=== PATIENT | female | born 1955 | race Caucasian/White ===

== ENCOUNTER 2018-05-02 17:32 | Emergency (ER) | payer MEDICARE, MEDICAID ==
--- NOTE | 2018-05-02 18:05 | Emergency Department Record ---
History of Present Illness - General Chief Complaint: Palpitations Stated Complaint: RACING HEART RATE,DIZZINESS Time Seen by Provider: 05/02/18 18:00 Source: Patient Mode of Arrival: Ambulatory Limitations: No limitations - History of Present Illness Initial Comments: 62 yo female presents to ED for evaluation of palpitations over the past 2 days. Patient reports a history of intermittent SVT for many years. Patient denies chest discomfort, shortness of breath, or pain with deep inspiration. Patient does report improvement in her symptoms with laying down at home. Patient denies history of heart disease or DVT/PE. MD Complaint: Palpitations Onset/Timin -: Days(s) Associated Symptoms: Chest pain - Related Data Previous Rx's Medication Instructions Recorded Hydrocodone/Acetaminophen [[place] 1 tab PO Q6H PRN #30 tab 03/02/16 5mg/325mg] Prednisone [Prednisone 10Mg] 10 mg PO ASDIR #30 tab 03/02/16 Allergies Allergy/AdvReac Type Severity Reaction Status Date / Time NSAIDS (Non-Steroidal Allergy Unknown HYPERSENSIT Verified 03/02/16 17:04 Anti-Inflamma IVITY [NSAIDS (NON-STEROIDAL ANTI-INFLAMMA] Travel Screening - Travel/Exposure Within Last 30 Days Have you traveled within the last 30 days?: No Review of Systems Constitutional: Denies: Chills, Fever, Malaise, Night sweats Eyes: Denies: Eye discharge, Eye pain ENT: Denies: Congestion, Ear pain, Epistaxis Respiratory: Denies: Cough, Dyspnea Cardiovascular: Reports: Palpitations. Denies: Chest pain, Dyspnea on exertion Endocrine: Denies: Fatigue, Heat or cold intolerance Gastrointestinal: Denies: Abdominal pain, Nausea, Vomiting Genitourinary: Denies: Incontinence, Retention Musculoskeletal: Denies: Arthralgia, Back pain Skin: Denies: Bruising, Change in color Neurological: Denies: Abnormal gait, Confusion, Headache, Numbness, Tingling, Tremors Psychiatric: Denies: Anxiety Hematological/Lymphatic: Denies: Anemia, Blood Clots Past Medical History - SOCIAL HISTORY Smoking Status: Current every day smoker Alcohol Use: None Drug Use: None - RESPIRATORY Hx Respiratory Disorders: No - CARDIOVASCULAR Hx Cardio Disorders: No - NEURO Hx Neuro Disorders: No - GI Hx GI Disorders: No - Hx Genitourinary Disorders: No - ENDOCRINE Hx Diabetes: Yes Hx Thyroid Disease: No - MUSCULOSKELETAL Hx Musculoskeletal Disorders: Yes Hx Arthritis: Yes - PSYCH Hx Psych Problems: Yes Hx Anxiety: Yes Hx Depression: Yes - HEMATOLOGY/ONCOLOGY Hx Hematology/Oncology Disorders: No Hx Cancer: No Family Medical History Any Significant Family History?: Yes Hx Heart Disease: Father, Mother Physical Exam - General General Appearance: Alert, Oriented x3, Cooperative, No acute distress Limitations: No limitations - Head Head exam: Atraumatic, Normocephalic, Normal inspection Head exam detail: negative: Abrasion, Contusion, Ross's sign, General tenderness, Hematoma, Laceration - Eye Eye exam: Normal appearance. negative: Conjunctival injection, Periorbital swelling, Periorbital tenderness, Scleral icterus - ENT Ear exam: negative: Auricular hematoma, Auricular trauma Nasal Exam: negative: Active bleeding, Discharge, Dried blood, Foreign body Mouth exam: negative: Drooling, Laceration, Muffled voice, Tongue elevation - Neck Neck exam: Normal inspection. negative: Meningismus, Tenderness - Respiratory Respiratory exam: Normal lung sounds bilaterally. negative: Respiratory distress, Rhonchi, Stridor, Wheezes - Cardiovascular Cardiovascular Exam: Regular rate, Normal rhythm, Normal heart sounds - GI/Abdominal GI/Abdominal exam: Soft. negative: Rebound, Rigid, Tenderness - Rectal Rectal exam: Deferred - exam: Deferred - Extremities Extremities exam: Normal inspection. negative: Pedal edema, Tenderness - Back Back exam: Denies: CVA tenderness (R), CVA tenderness (L) - Neurological Neurological exam: Alert, Normal gait, Oriented X3 - Psychiatric Psychiatric exam: Anxious, Normal mood - Skin Skin exam: Normal color. negative: Abrasion Type of lesion: negative: abrasion Course Vital Signs 05/02/18 17:36 Temperature 97.9 F Pulse Rate 92 H Respiratory 26 H Rate Blood Pressure 126/79 Pulse Ox 94 L - Reevaluation(s) Reevaluation #1: 05/02/18 18:04 EKG: NSR 77 Normal axis, normal intervals No acute ST-T wave changes Reevaluation #2: 05/02/18 18:33 Laboratory studies were reviewed and are grossly unremarkable for an acute process. Reevaluation #3: 05/02/18 19:07 Patient was updated on all results, recommend observation admission for further cardiac evaluation. Following discussion with the patient regarding admission for further cardiac evaluation, patient reports that they want to leave AMA at this time. Risks of , permanent impairment, or worsening of their current condition were discussed as well as the benefit of further observation and admission for further evaluation of their chest pain symptoms. Patient verbalizes understanding of all risks and benefits, desires to leave AMA despite these risks. Based on my examination, the patient is alert, oriented, and answers all questions appropriately. Patient appears to have the capacity to make rational decisions based on my examination. Patients family () was present for the duration of our discussion as well. Patient was encouraged to return to the ED immediately if they change their mind about treatment and want to be re-evaluated. Will refer the patient for outpatient cardiac stress testing as well. Patient appears stable for discharge AMA at this time. Medical Decision Making - Lab Data Result diagrams: 05/02/18 17:40 05/02/18 17:40 Disposition Disposition: Discharge Clinical Impression: Palpitations Chest pain Qualifiers: Chest pain type: unspecified Qualified Code(s): R07.9 - Chest pain, unspecified Disposition: Against Medical Advice Condition: (2) Stable Instructions: Heart Palpitations (ED) Additional Instructions: Return to ED if your symptoms worsen or if you have any concerns. Follow-up with your family doctor in 3-5 days as directed. Follow-up in the [facility] for outpatient stress testing in 1-3 days as directed. Referrals: TISH NEELY M.D. [MEDICAL DOCTOR] - [facility] [Provider Group] Forms: Patient Portal Access Time of Disposition: 19:10 Quality - Quality Measures Quality Measures: N/A - Blood Pressure Screening Does Patient Have Any of the Following: No Blood Pressure Classification: Pre-Hypertensive BP Reading Systolic Measurement: 126 Diastolic Measurement: 79 Screening for High Blood Pressure: < Pre-Hypertensive BP, F/U Documented > [ G8950] Pre-Hypertensive Follow-up Interventions: Referral to alternative/primary care provider.
[2018-05-02 18:10] LABS: BASO % 0.6 % (0-6); EOS % 5.1 % (0-6); HEMATOCRIT 36.5 % (35.0-47.0); HEMOGLOBIN 11.6 gm/dl (11.6-16.0); LYMPH % 29.5 % (16-45); MEAN CELL VOLUME 98.4 fl (81-97); MEAN CORPUSCULAR HEMOGLOBIN 31.2 pg (27-33); MEAN CORPUSCULAR HGB CONC 31.8 g/dl (32-36); MONO % 7.8 % (0-9); PLATELET COUNT 358 K/uL (130-400); RED BLOOD COUNT 3.71 M/uL (3.80-5.40); RED CELL DISTRIBUTION WIDTH 13.2 % (11.5-14.5); WHITE BLOOD COUNT W/O DIFF 9.6 K/uL (4.2-12.2)
[2018-05-02] MEDS ORDERED: 0.9 % SODIUM CHLORIDE 1000ML 1,000 ML IV SCH (18:15)
[2018-05-02 18:23] LABS: BLOOD UREA NITROGEN 13 mg/dL (8-23); CREATININE 0.9 mg/dL (0.5-0.9); EST GLOMERULAR FILTRATION RATE > 60 mL/min
[2018-05-02 18:24] LABS: TOTAL PROTEIN 7.3 g/dL (6.6-8.7)
[2018-05-02 18:26] LABS: GLUCOSE,RANDOM 181 mg/dL (74-109)
[2018-05-02 18:28] LABS: ALT/SGPT 18 U/L (<33); AST/SGOT 14 U/L (10.0-35.0)
[2018-05-02 18:29] LABS: ALB/GLOB RATIO 1.4 (1.1-1.8); ALBUMIN 4.3 g/dL (4.0-5.0); ALKALINE PHOSPHATASE 98 U/L (35-104)
[2018-05-02] MEDS ORDERED: NITROGLYCERIN 0.4MG SL TABLET #25 BTL SL PRN (18:32)
--- NOTE | 2018-05-04 11:52 | RADIOLOGY REPORT ---
DATE: 05/02/2018 at 6:51 p.m. EXAM: TWO-VIEW, CHEST. HISTORY: PALPITATIONS. TECHNIQUE: PA and lateral views. COMPARISON: A two-view, chest, dated 02/16/2013. FINDINGS: Heart size is normal. No definite acute infiltrate seen. No pleural effusion or pneumothorax evident. Prominent spurring in the mid to lower thoracic spine with a thoracic curve convex to the right. IMPRESSION: 1. PROMINENT SPURRING IN THE THORACIC SPINE WITH A THORACIC CURVE TO THE RIGHT. 2. NO DEFINITE ACUTE INFILTRATE IDENTIFIED. JOB NUMBER: [id number] [facility]
== END 2018-05-02 19:34 | disposition left against medical advice (07) ==
LOC: ER 17:32
DX: R00.2 Palpitations (principal); R07.9 Chest pain, unspecified; R42 Dizziness and giddiness; F17.210 Nicotine dependence, cigarettes, uncomplicated; E11.9 Type 2 diabetes mellitus without complications; Z79.84 Long term (current) use of oral hypoglycemic drugs
CPT/HCPCS: 71046; 80053; 84484; 85025; 85379; 93005; 93010; 99284

== ENCOUNTER 2018-10-21 23:48 | Observation (INO) | payer MEDICARE, MEDICAID ==
--- NOTE | 2018-10-21 23:52 | Emergency Department Record ---
History of Present Illness - General Chief Complaint: Cough Stated Complaint: COUGH Time Seen by Provider: 10/21/18 23:50 Source: Patient, Family Mode of Arrival: Ambulatory Limitations: No limitations - History of Present Illness Initial Comments: 63 yo female presents with about 5 days of progressive cough and shortness of breath. She is a smoker. The cough so far has been non productive. She denies and chest pain. No history of diagnosed lung disease. She had a few loose stools today. No vomiting. The patient was 88% on room air on arrival. No known coronary disease. No recent edema of the legs. She reports that she did have some similar cough over the course of the last month but it seemed to have gotten better only to return the last 5 days. She had pneumonia about 10 years ago requiring admission for about a week. PCP is in [place] She did state that she occasionally uses her husbands nebulizer at home if short of breath. MD Complaint: Cough, Nasal congestion, Rhinorrhea -: Days(s) (5) Severity: Moderate Quality: Other Consistency: Constant Improves With: Nothing Worsens With: Activity Context: Other Associated Symptoms: Cough Treatments Prior to Arrival: None - Related Data Home Medications Medication Instructions Recorded Confirmed Last Taken Acetaminophen [Tylenol Extra 500 mg PO BID 10/22/18 10/22/18 Unknown Strength] Cetirizine HCl 10 mg PO DAILY 10/22/18 10/22/18 Unknown Clonazepam 1 mg PO TID 10/22/18 10/22/18 Unknown Cyanocobalamin (Vitamin B-12) 1,000 mcg PO DAILY 10/22/18 10/22/18 Unknown [Vitamin B12] Gabapentin [Neurontin] 600 mg PO TID 10/22/18 10/22/18 Unknown Lisinopril 2.5 mg PO DAILY 10/22/18 10/22/18 Unknown Melatonin 5 mg PO QHS 10/22/18 10/22/18 Unknown Sennosides/Docusate Sodium [Senna 1 each PO QHS 10/22/18 10/22/18 Unknown Plus] Venlafaxine HCl [Effexor Xr] 37.5 mg PO DAILY 10/22/18 10/22/18 Unknown Venlafaxine HCl [Effexor Xr] 150 mg PO DAILY 10/22/18 10/22/18 Unknown Allergies Allergy/AdvReac Type Severity Reaction Status Date / Time NSAIDS (Non-Steroidal Allergy Unknown HYPERSENSIT Verified 03/02/16 17:04 Anti-Inflamma IVITY [NSAIDS (NON-STEROIDAL ANTI-INFLAMMA] Review of Systems Constitutional: Reports: Malaise. Denies: Chills, Fever Eyes: Denies: Eye discharge ENT: Reports: Congestion. Denies: Ear pain, Epistaxis, Throat pain Respiratory: Reports: Cough, Dyspnea, Wheezes. Denies: Hemoptysis Cardiovascular: Reports: Dyspnea on exertion. Denies: Chest pain, Edema, Palpitations, Syncope Endocrine: Reports: Fatigue. Denies: Polydipsia, Polyuria Gastrointestinal: Denies: Abdominal pain, Diarrhea, Nausea, Vomiting Genitourinary: Denies: Dysuria, Urgency Musculoskeletal: Reports: Arthralgia (chronic knee pain). Denies: Back pain, Myalgia Skin: Denies: Bruising, Change in color, Rash Neurological: Denies: Confusion Psychiatric: Denies: Anxiety Hematological/Lymphatic: Denies: Easy bleeding, Easy bruising Past Medical History - SOCIAL HISTORY Smoking Status: Current every day smoker Drug Use: None - RESPIRATORY Hx Respiratory Disorders: No - CARDIOVASCULAR Hx Cardio Disorders: No - NEURO Hx Neuro Disorders: No - GI Hx GI Disorders: No - Hx Genitourinary Disorders: No - ENDOCRINE Hx Diabetes: Yes Hx Thyroid Disease: No - MUSCULOSKELETAL Hx Musculoskeletal Disorders: Yes Hx Arthritis: Yes - PSYCH Hx Psych Problems: Yes Hx Anxiety: Yes Hx Depression: Yes - HEMATOLOGY/ONCOLOGY Hx Hematology/Oncology Disorders: No Hx Cancer: No Family Medical History Hx Heart Disease: Father, Mother Physical Exam - General General Appearance: Alert, Oriented x3, Cooperative, No acute distress Limitations: No limitations - Head Head exam: Atraumatic, Normal inspection - Eye Eye exam: Normal appearance. negative: Conjunctival injection - ENT ENT exam: Normal exam, Mucous membranes moist Ear exam: Normal external inspection Nasal Exam: Normal inspection Mouth exam: Normal external inspection - Neck Neck exam: Normal inspection - Respiratory Respiratory exam: Accessory muscle use, Decreased breath sounds, Prolonged expiratory, Rhonchi, Wheezes. negative: Normal lung sounds bilaterally, Respiratory distress - Cardiovascular Cardiovascular Exam: Regular rate, Normal rhythm, Normal heart sounds - GI/Abdominal GI/Abdominal exam: Soft. negative: Distended, Guarding, Tenderness - Rectal Rectal exam: Deferred - exam: Deferred - Extremities Extremities exam: Normal inspection. negative: Calf tenderness, Pedal edema, Tenderness - Back Back exam: Denies: CVA tenderness (R), CVA tenderness (L) - Neurological Neurological exam: Alert, Oriented X3 - Psychiatric Psychiatric exam: Normal affect, Normal mood. negative: Agitated, Anxious - Skin Skin exam: Dry, Intact, Normal color, Warm Course - Reevaluation(s) Reevaluation #1: EKG #1: Rate: 82 Rhythm: sinus Loving: normal Intervals: normal ST segments: normal Prior: 05/02/2018 no changes 10/22/18 00:03 10/22/18 00:11 On 2LNC oxygen levels increase to low 90's 10/22/18 00:16 The CBC was reviewed. Mild anemia. Medical Decision Making - Lab Data Result diagrams: 10/22/18 00:05 10/22/18 00:05 Disposition Disposition: Admit Clinical Impression: Cough, Hypoxia, Smoker, Bronchitis, COPD (chronic obstructive pulmonary disease) Disposition: Still a Patient at [facility] Decision to Admit: Admit from ER Decision to Admit Date: 10/22/18 Decision to Admit Time: 00:43 Condition: (2) Stable Forms: Patient Portal Access Time of Disposition: 00:43 Quality - Quality Measures Quality Measures: N/A - Blood Pressure Screening Does Patient Have Any of the Following: No Blood Pressure Classification: Hypertensive Reading Systolic Measurement: 143 Diastolic Measurement: 75 Screening for High Blood Pressure: < Pre-Hypertensive BP, F/U Documented > [G8950] Pre-Hypertensive Follow-up Interventions: Referral to alternative/primary care provider.
[2018-10-21] MEDS ORDERED: METHYLPREDNISOLONE PF 125MG/VIAL IM ONE (23:54)
[2018-10-21] MEDS ORDERED: AZITHROMYCIN 500 MG TABLET PO ONE (23:54)
[2018-10-21] MEDS ORDERED: IPRATROPIUM/ALBUTEROL (0.5MG/3MG) NEB INH ONE (23:54)
[2018-10-22 00:13] LABS: ABSOLUTE NEUTROPHIL COUNT 5.48; BASO % 0.6 % (0-6); GRAN % 57.3 % (47-80); HEMATOCRIT 37.4 % (35.0-47.0); HEMOGLOBIN 11.6 gm/dl (11.6-16.0); LYMPH % 26.9 % (16-45); MEAN CELL VOLUME 101.9 fl (81-97); MEAN CORPUSCULAR HEMOGLOBIN 31.6 pg (27-33); MEAN PLATELET VOLUME 9.7 fl (7.4-10.4); MONO % 9.2 % (0-9); PLATELET COUNT 319 K/uL (130-400); RED BLOOD COUNT 3.67 M/uL (3.80-5.40); RED CELL DISTRIBUTION WIDTH 13.7 % (11.5-14.5); WHITE BLOOD COUNT W/O DIFF 9.6 K/uL (4.2-12.2)
[2018-10-22 00:20] LABS: BLOOD UREA NITROGEN 10 mg/dL (8-23)
[2018-10-22 00:21] LABS: CREATININE 0.9 mg/dL (0.5-0.9); EST GLOMERULAR FILTRATION RATE > 60 mL/min
[2018-10-22] MEDS ORDERED: METHYLPREDNISOLONE PF 125MG/VIAL IVP ONE (00:22)
[2018-10-22 00:23] LABS: GLUCOSE,RANDOM 336 mg/dL (74-109)
[2018-10-22] MEDS ORDERED: HUMULIN R 100 UNIT/ML VIAL SQ ONE (00:35)
[2018-10-22] MEDS ORDERED: ACETAMINOPHEN 500 MG TABLET PO PRN (01:14)
[2018-10-22] MEDS ORDERED: ALBUTEROL SULFATE (0.083%) 2.5 MG/3 ML NEB INH PRN (01:14)
[2018-10-22] MEDS: CEFTRIAXONE SODIUM 1 GM in 0.9 % SODIUM CHLORIDE 100ML 100 ML IVPB SCH ×2 (02:01→02:10)
[2018-10-22] MEDS: IPRATROPIUM/ALBUTEROL (0.5MG/3MG) NEB INH SCH ×5 (05:37→21:47)
[2018-10-22] MEDS: BENZONATATE 100 MG CAPSULE PO PRN ×2 (06:16→19:53)
[2018-10-22] MEDS: HUMULIN R 100 UNIT/ML VIAL SQ SCH ×3 (08:11→17:55)
[2018-10-22] MEDS: METFORMIN 500 MG TABLET PO SCH ×2 (08:20→17:56)
[2018-10-22] MEDS ORDERED: LORATADINE 10 MG TABLET PO SCH ×3 (08:30→22:00)
[2018-10-22] MEDS ORDERED: CYANOCOBALAMIN (VITAMIN B-12) 100 MCG TABLET PO SCH (08:30)
[2018-10-22] MEDS ORDERED: DILTIAZEM 180MG CR CAPSULE PO SCH ×3 (08:30→22:00)
[2018-10-22] MEDS ORDERED: LISINOPRIL 5 MG TABLET PO SCH (08:30)
[2018-10-22] MEDS ORDERED: ASPIRIN 81 MG TABEC PO SCH ×3 (08:30→22:00)
[2018-10-22] MEDS ORDERED: GABAPENTIN 300 MG CAPSULE PO SCH (08:30)
[2018-10-22] MEDS: VENLAFAXINE ER 37.5 MG CAPSULE PO SCH (08:38)
[2018-10-22] MEDS: VENLAFAXINE ER 75 MG CAPSULE PO SCH (08:39)
[2018-10-22] MEDS: CLONAZEPAM 1MG TABLET PO SCH ×3 (08:40→21:40)
--- NOTE | 2018-10-22 08:48 | RADIOLOGY REPORT ---
EXAM: CHEST, TWO VIEWS HISTORY: COUGH WITH SHORTNESS OF BREATH FOR THE PAST SEVERAL WEEKS. WORSENING SYMPTOMS. TECHNIQUE: PA and lateral upright views of the chest were obtained. Comparison: 05/02/18. FINDINGS: The heart, mediastinum, and pulmonary vasculature are normal. There is stable linear scarring at the left lung base. There are no acute infiltrates or effusions. There is no pneumothorax. Degenerative changes are present within the spine. IMPRESSION: STABLE CHEST WITH NO ACUTE PROCESS IDENTIFIED. JOB NUMBER: [id number] [facility]
[2018-10-22] MEDS ORDERED: METHYLPREDNISOLONE PF 125MG/VIAL IVP SCH (10:00)
[2018-10-22] MEDS: ENOXAPARIN 40 MG/0.4 ML SYR SC SCH (11:50)
[2018-10-22] MEDS: GABAPENTIN 300 MG CAPSULE PO SCH ×3 (14:11→21:39)
[2018-10-22] MEDS: LISINOPRIL 5 MG TABLET PO SCH (14:12)
[2018-10-22] MEDS: CYANOCOBALAMIN (VITAMIN B-12) 100 MCG TABLET PO SCH (14:12)
[2018-10-22] MEDS ORDERED: RANITIDINE HCL 150 MG TABLET PO PRN (14:48)
--- NOTE | 2018-10-22 14:51 | History & Physical ---
History of Present Illness - Date of Service Date of Service for History & Physical: 10/22/18 - History of Present Illness Admitting Diagnosis: COPD, Hypoxia, Bronchitis History of Present Illness: 63 yo female presents with about 5 days of progressive cough and shortness of breath. She is a smoker. The cough so far has been non productive. She denies and chest pain. No history of diagnosed lung disease. She had a few loose stools today. No vomiting. The patient was 88% on room air on arrival. No known coronary disease. No recent edema of the legs. She reports that she did have some similar cough over the course of the last month but it seemed to have gotten better only to return the last 5 days. She had pneumonia about 10 years ago requiring admission for about a week. PCP is in [place] She did state that she occasionally uses her husbands nebulizer at home if short of breath. PMHx includes: every day smoker, DM, arthritis, anxiety, depression. In the ED, oxygen 88% on arrival. HR 94. BP stable and pt afebrile. Oxygen improved to low 90s on 2L O2. EKG SNR, normal intervals, no ST-T changes, no changes from previous of 05/02/18. CBC demonstrated mild anemia. Pt. was admitted for COPD exacerbation and URI. 10/22/18: Pt. is resting in bed, she reports improvement in shortness of breath. She is currently on 2L oxygen [place]. Will change to PO steroids and abx today. today. Continue duo nebs q4h. PCP: Travel Screening - Travel/Exposure Within Last 30 Days Have you traveled within the last 30 days?: No - Travel/Exposure Within Last Year Have you traveled outside the [place] in the last year?: No - Additonal Travel Details Have you been exposed to anyone with a communicable illness?: No - Travel Symptoms Symptom Screening: None Review of Systems Constitutional: Reports: Malaise. Denies: Chills, Fever Eyes: Denies: Eye discharge ENT: Reports: Congestion. Denies: Ear pain, Epistaxis, Throat pain Respiratory: Reports: Cough, Dyspnea, Wheezes. Denies: Hemoptysis Cardiovascular: Reports: Dyspnea on exertion. Denies: Chest pain, Edema, Palpitations, Syncope Endocrine: Reports: Fatigue. Denies: Polydipsia, Polyuria Gastrointestinal: Denies: Abdominal pain, Diarrhea, Nausea, Vomiting Genitourinary: Denies: Dysuria, Urgency Musculoskeletal: Reports: Arthralgia (chronic knee pain). Denies: Back pain, Myalgia Skin: Denies: Bruising, Change in color, Rash Neurological: Denies: Confusion Psychiatric: Denies: Anxiety Hematological/Lymphatic: Denies: Easy bleeding, Easy bruising Past Medical History - SOCIAL HISTORY Smoking Status: Current every day smoker - RESPIRATORY Hx Respiratory Disorders: No - CARDIOVASCULAR Hx Cardio Disorders: No - NEURO Hx Neuro Disorders: No - GI Hx GI Disorders: No - Hx Genitourinary Disorders: No - ENDOCRINE Hx Diabetes: Yes Hx Thyroid Disease: No - MUSCULOSKELETAL Hx Musculoskeletal Disorders: Yes Hx Arthritis: Yes - PSYCH Hx Psych Problems: Yes Hx Anxiety: Yes Hx Depression: Yes - HEMATOLOGY/ONCOLOGY Hx Hematology/Oncology Disorders: No Hx Cancer: No Family Medical History Any Significant Family History?: No Hx Heart Disease: Father, Mother H&P Meds/Allergies - Allergies Allergies: Allergies Allergy/AdvReac Type Severity Reaction Status Date / Time NSAIDS (Non-Steroidal Allergy Unknown HYPERSENSIT Verified 03/02/16 17:04 Anti-Inflamma IVITY [NSAIDS (NON-STEROIDAL ANTI-INFLAMMA] - Home Medications Home Medications Medication Instructions Recorded Confirmed Last Taken Acetaminophen [Tylenol Extra 1,000 mg PO TID 10/22/18 10/22/18 Unknown Strength] Cetirizine HCl 10 mg PO DAILY 10/22/18 10/22/18 Unknown Clonazepam 1 mg PO TID 10/22/18 10/22/18 Unknown Cyanocobalamin (Vitamin B-12) 1,000 mcg PO DAILY 10/22/18 10/22/18 Unknown [Vitamin B12] Gabapentin [Neurontin] 600 mg PO QID 10/22/18 10/22/18 Unknown Lisinopril 2.5 mg PO DAILY 10/22/18 10/22/18 Unknown Melatonin 5 mg PO QHS 10/22/18 10/22/18 Unknown Sennosides/Docusate Sodium [Senna 1 each PO QHS 10/22/18 10/22/18 Unknown Plus] Venlafaxine HCl [Effexor Xr] 37.5 mg PO DAILY 10/22/18 10/22/18 Unknown Venlafaxine HCl [Effexor Xr] 150 mg PO DAILY 10/22/18 10/22/18 Unknown - Active Medications Active Medications: Current Medications Acetaminophen (Tylenol 500mg Tab) 1,000 mg PO Q6H PRN PRN Reason: PAIN - MILD(1-4)/FEVER Albuterol Sulfate (Albuterol Sulfate) 2.5 mg INH RESP.Q4H PRN PRN Reason: DIFFICULTY IN BREATHING Albuterol/Ipratropium (Duoneb) 3 ml INH RESP.Q4H.WA [facility] Last Admin: 10/22/18 14:08 Dose: 3 ml Documented by: Aspirin (Ecotrin (Ec)) 81 mg PO QHS [facility] Azithromycin (Zithromax) 500 mg PO Q24H [facility] Benzonatate (Tessalon) 100 mg PO TID PRN PRN Reason: COUGH Last Admin: 10/22/18 06:16 Dose: 100 mg Documented by: Clonazepam (Klonopin) 1 mg PO Q8HR [facility] Last Admin: 10/22/18 08:40 Dose: 1 mg Documented by: Cyanocobalamin (Vitamin B-12) 100 mcg PO DAILYAC [facility] Last Admin: 10/22/18 14:12 Dose: Not Given Documented by: Diltiazem HCl (Cardizem Cd) 180 mg PO QHS [facility] Enoxaparin Sodium (Lovenox) 40 mg SC DAILY [facility] Last Admin: 10/22/18 11:50 Dose: 40 mg Documented by: Gabapentin (Neurontin) 600 mg PO 0600,1200,1800,2200 [facility] Last Admin: 10/22/18 14:11 Dose: 600 mg Documented by: CEFTRIAXONE 1GM/50ML BAG (Ceftriaxone 1 Gm-D5w Bag) 1 gm in 50 mls @ 100 mls/hr IVPB Q24H [facility] Insulin Human Regular (Humulin R) 1 unit SQ TIDAC [facility]; Protocol Last Admin: 10/22/18 11:47 Dose: 14 unit Documented by: Lisinopril (Zestril) 2.5 mg PO DAILYAC [facility] Last Admin: 10/22/18 14:12 Dose: Not Given Documented by: Loratadine (Claritin) 10 mg PO QHS [facility] Metformin HCl (Glucophage Ir) 1,000 mg PO BIDWM [facility] Last Admin: 10/22/18 08:20 Dose: 1,000 mg Documented by: Methylprednisolone Sodium Succinate (Solu-Medrol) 60 mg IVP DAILY [facility] Last Admin: 10/22/18 11:52 Dose: 60 mg Documented by: Simvastatin (Zocor) 40 mg PO QHS [facility] Trazodone HCl (Desyrel) 200 mg PO QHS [facility] Venlafaxine HCl (Effexor Xr) 37.5 mg PO DAILYAC [facility] Last Admin: 10/22/18 08:38 Dose: 37.5 mg Documented by: Venlafaxine HCl (Effexor Xr) 150 mg PO DAILYAC [facility] Last Admin: 10/22/18 08:39 Dose: 150 mg Documented by: Physical Exam - Vital Signs Vital Signs: Vital Signs - Last 24 Hrs Temp Pulse Pulse Resp BP BP BP 10/22/18 14:30 97.8 F 109/67 10/22/18 14:09 100 H 18 10/22/18 10:37 10/22/18 10:20 90 16 10/22/18 09:00 88 20 10/22/18 07:27 97.8 F 87 17 109/67 10/22/18 05:37 86 20 10/22/18 02:39 83 18 10/22/18 01:15 97.8 F 83 18 115/66 10/22/18 01:05 76 20 90/55 10/22/18 00:39 86 24 108/80 10/21/18 23:58 85 20 10/21/18 23:53 98.4 F 94 H 24 143/75 Pulse Ox 10/22/18 14:30 10/22/18 14:09 95 10/22/18 10:37 93 L 10/22/18 10:20 98 10/22/18 09:00 10/22/18 07:27 93 L 10/22/18 05:37 91 L 10/22/18 02:39 10/22/18 01:15 91 L 10/22/18 01:05 95 10/22/18 00:39 91 L 10/21/18 23:58 10/21/18 23:53 92 L - General General Appearance: Alert, Oriented x3, Cooperative, No acute distress Limitations: No limitations - Head Head exam: Atraumatic, Normal inspection - Eye Eye exam: Normal appearance. negative: Conjunctival injection - ENT ENT exam: Normal exam, Mucous membranes moist Ear exam: Normal external inspection Nasal Exam: Normal inspection Mouth exam: Normal external inspection - Neck Neck exam: Normal inspection - Respiratory Respiratory exam: Decreased breath sounds, Prolonged expiratory, Rhonchi, Whe ezes. negative: Normal lung sounds bilaterally, Respiratory distress - Cardiovascular Cardiovascular Exam: Regular rate, Normal rhythm, Normal heart sounds - GI/Abdominal GI/Abdominal exam: Soft. negative: Distended, Guarding, Tenderness - Rectal Rectal exam: Deferred - exam: Deferred - Extremities Extremities exam: Normal inspection. negative: Calf tenderness, Pedal edema, Tenderness - Back Back exam: Denies: CVA tenderness (R), CVA tenderness (L) - Neurological Neurological exam: Alert, Oriented X3 - Psychiatric Psychiatric exam: Normal affect, Normal mood. negative: Agitated, Anxious - Skin Skin exam: Dry, Intact, Normal color, Warm Results - Labs Result Diagrams: 10/22/18 00:05 10/22/18 00:05 Labs Last 24 Hours: Laboratory Results - last 24 hr 10/22/18 10/22/18 10/22/18 00:05 00:05 00:05 WBC 9.6 RBC 3.67 L Hgb 11.6 Hct 37.4 MCV 101.9 H MCH 31.6 MCHC 31.0 L RDW 13.7 Plt Count 319 MPV 9.7 Gran % 57.3 Lymphocytes % 26.9 Monocytes % 9.2 H Eosinophils % 6.0 Basophils % 0.6 Absolute Neutrophils 5.48 Sodium 137 Potassium 5.5 H Chloride 102 Carbon Dioxide 24.0 Anion Gap 11.0 BUN 10 Creatinine 0.9 Estimated GFR > 60 POC Glucose Random Glucose 336 H Calcium 9.1 Troponin T < 0.010 NT-Pro-B Natriuret Pep 102.10 10/22/18 08:22 WBC RBC Hgb Hct MCV MCH MCHC RDW Plt Count MPV Gran % Lymphocytes % Monocytes % Eosinophils % Basophils % Absolute Neutrophils Sodium Potassium Chloride Carbon Dioxide Anion Gap BUN Creatinine Estimated GFR POC Glucose 298 H Random Glucose Calcium Troponin T NT-Pro-B Natriuret Pep VTE H&P Assessment - Risk for VTE Risk for VTE: Yes Risk Level: Low Risk Assessment Date: 10/22/18 Risk Assessment Time: 14:52 VTE Orders Placed or Will Be Placed: Yes Plan - Detailed Diagnosis and Plan (1) COPD (chronic obstructive pulmonary disease) Current Visit: Yes Status: Acute Base Code: J44.9 - CHRONIC OBSTRUCTIVE PULMONARY DISEASE, UNSPECIFIED Comment: 10/22/18: -COPD exacerbation -2L oxygen [place] -Continue duo nebs q4h, prednisone 40mg daily, azith and rocephin (2) Bronchitis Current Visit: Yes Status: Acute Base Code: J40 - BRONCHITIS, NOT SPECIFIED ACUTE OR CHRONIC Comment: 10/22/18: -Duo nebs q4h, prednisone 40mg daily -azith and cefdinir (3) Smoker Current Visit: Yes Status: Acute Base Code: F17.200 - NICOTINE DEPENDENCE, UNSPECIFIED, UNCOMPLICATED Comment: 10/22/18: -Pt. is an every-day smoker, unmotivated to quit -Provided education regarding smoking and COPD disease process, highly recommended cessation (4) At risk for deep venous thrombosis Current Visit: Yes Status: Acute Base Code: Z91.89 - OTH PERSONAL RISK FACTORS, NOT ELSEWHERE CLASSIFIED Comment: 10/22/18: -lovenox 40mg SC daily for DVT prophylaxis (5) Full code status Current Visit: Yes Status: Acute Base Code: Z78.9 - OTHER SPECIFIED HEALTH STATUS Comment: 10/22/18: -Pt. is a full code
[2018-10-22] MEDS: CEFDINIR 300 MG CAPSULE PO SCH (21:39)
[2018-10-22] MEDS: AZITHROMYCIN 250 MG TABLET PO SCH (21:44)
[2018-10-22] MEDS ORDERED: CEFTRIAXONE 1GM/50ML BAG 1 GM/50 ML BAG IVPB SCH (22:00)
[2018-10-22] MEDS ORDERED: TRAZODONE 50 MG TABLET PO SCH (22:00)
[2018-10-22] MEDS ORDERED: AZITHROMYCIN 500 MG TABLET PO SCH (22:00)
[2018-10-22] MEDS ORDERED: SIMVASTATIN 20 MG TABLET PO SCH (22:00)
[2018-10-23] MEDS ORDERED: HUMULIN R 100 UNIT/ML VIAL SQ SCH (00:10)
[2018-10-23] MEDS: IPRATROPIUM/ALBUTEROL (0.5MG/3MG) NEB INH SCH ×2 (06:15→09:56)
[2018-10-23] MEDS: GABAPENTIN 300 MG CAPSULE PO SCH (06:40)
[2018-10-23] MEDS: CLONAZEPAM 1MG TABLET PO SCH (06:40)
[2018-10-23 07:05] LABS: HEMATOCRIT 33.3 % (35.0-47.0); HEMOGLOBIN 10.4 gm/dl (11.6-16.0); MEAN CELL VOLUME 102.5 fl (81-97); MEAN CORPUSCULAR HGB CONC 31.2 g/dl (32-36); MEAN PLATELET VOLUME 9.6 fl (7.4-10.4); PLATELET COUNT 318 K/uL (130-400); RED BLOOD COUNT 3.25 M/uL (3.80-5.40); RED CELL DISTRIBUTION WIDTH 13.7 % (11.5-14.5); WHITE BLOOD COUNT W/O DIFF 17.9 K/uL (4.2-12.2)
[2018-10-23 07:38] LABS: PLATELET ESTIMATE NORMAL (NORMAL)
[2018-10-23 07:45] LABS: ALB/GLOB RATIO 1.6 (1.1-1.8); ALBUMIN 3.7 g/dL (4.0-5.0); ALKALINE PHOSPHATASE 79 U/L (35-104); ALT/SGPT 15 U/L (<33); AST/SGOT 9 U/L (10.0-35.0); BILIRUBIN,TOTAL < 0.20 mg/dL (0.2-1.0); BLOOD UREA NITROGEN 20 mg/dL (8-23); CREATININE 0.9 mg/dL (0.5-0.9); EST GLOMERULAR FILTRATION RATE > 60 mL/min; GLUCOSE,RANDOM 260 mg/dL (74-109)
[2018-10-23] MEDS ORDERED: PREDNISONE 20 MG TAB PO SCH (08:00)
[2018-10-23] MEDS: HUMULIN R 100 UNIT/ML VIAL SQ SCH ×2 (08:00→12:06)
[2018-10-23] MEDS: LISINOPRIL 5 MG TABLET PO SCH (08:01)
[2018-10-23] MEDS: VENLAFAXINE ER 75 MG CAPSULE PO SCH (08:01)
[2018-10-23] MEDS: VENLAFAXINE ER 37.5 MG CAPSULE PO SCH (08:01)
[2018-10-23] MEDS: CYANOCOBALAMIN (VITAMIN B-12) 100 MCG TABLET PO SCH (08:01)
[2018-10-23] MEDS: METFORMIN 500 MG TABLET PO SCH (08:01)
[2018-10-23] MEDS: AZITHROMYCIN 250 MG TABLET PO SCH (10:18)
[2018-10-23] MEDS: CEFDINIR 300 MG CAPSULE PO SCH (10:19)
[2018-10-23] MEDS: ENOXAPARIN 40 MG/0.4 ML SYR SC SCH (10:19)
--- NOTE | 2018-10-23 11:18 | Discharge Summary ---
Providers Discharge Summary Date: 10/23/18 Date of admission: 10/22/18 01:07 Expected Date of Discharge: 10/23/18 Attending physician: MERCEDES TORO Physical Exam - Vital Signs Vital Signs: Vital Signs - Last 24 Hrs Temp Pulse Pulse Resp BP BP Pulse Ox 10/23/18 09:57 90 18 96 10/23/18 08:54 14 10/23/18 08:48 92 L 10/23/18 07:13 97.5 F L 100 H 16 97/63 91 L 10/23/18 06:15 90 18 93 L 10/22/18 21:47 100 H 18 93 L 10/22/18 21:00 102 H 18 10/22/18 18:07 101 H 18 97 10/22/18 17:30 97.0 F L 105 H 18 124/63 90 L 10/22/18 14:30 97.8 F 109/67 10/22/18 14:09 100 H 18 95 - General General Appearance: Alert, Oriented x3, Cooperative, No acute distress Limitations: No limitations - Head Head exam: Atraumatic, Normal inspection - Eye Eye exam: Normal appearance. negative: Conjunctival injection - ENT ENT exam: Normal exam, Mucous membranes moist Ear exam: Normal external inspection Nasal Exam: Normal inspection Mouth exam: Normal external inspection - Neck Neck exam: Normal inspection - Respiratory Respiratory exam: Decreased breath sounds. negative: Normal lung sounds bilaterally, Respiratory distress - Cardiovascular Cardiovascular Exam: Regular rate, Normal rhythm, Normal heart sounds Peripheral Pulses: 2+: Dorsalis Pedis (R), Dorsalis Pedis (L) - GI/Abdominal GI/Abdominal exam: Soft. negative: Distended, Guarding, Tenderness - Rectal Rectal exam: Deferred - exam: Deferred - Extremities Extremities exam: Normal inspection. negative: Calf tenderness, Pedal edema, Tenderness - Back Back exam: Denies: CVA tenderness (R), CVA tenderness (L) - Neurological Neurological exam: Alert, Oriented X3 - Psychiatric Psychiatric exam: Normal affect, Normal mood. negative: Agitated, Anxious - Skin Skin exam: Dry, Intact, Normal color, Warm Hospitalization - Hospitalization Admission Diagnosis: COPD, Hypoxia, Bronchitis - Problem List/Discharge Diagnosis (1) COPD (chronic obstructive pulmonary disease) Current Visit: Yes Status: Acute Discharge Diagnosis: COPD type: COPD with acute exacerbation Qualified Code(s): J44.1 - Chronic obstructive pulmonary disease with (acute) exacerbation Base Code: J44.9 - CHRONIC OBSTRUCTIVE PULMONARY DISEASE, UNSPECIFIED Comment: 10/23/18: -COPD exacerbation, responded well to antibiotics, steroids, and breathing treatments -Room air O2>88% -Did not have any previous rescue or maintenance COPD inhalers at home, will DC with Albuterol inhaler, continue oral antibiotic and steroid regimen - She was advised to stop smoking and avoid those smoking around her, is motivated to quit, DC with Nicotine patch -Follow up with PCP in 1 week (2) Bronchitis Current Visit: Yes Status: Acute Base Code: J40 - BRONCHITIS, NOT SPECIFIED ACUTE OR CHRONIC Comment: 10/23/18: - See above (3) Hypoxia Current Visit: Yes Status: Acute Base Code: R09.02 - HYPOXEMIA (4) Smoker Current Visit: Yes Status: Acute Base Code: F17.200 - NICOTINE DEPENDENCE, UNSPECIFIED, UNCOMPLICATED Comment: 10/23/18: -Pt. is an every-day smoker, does report she is motivated to quit -Provided education regarding smoking and COPD disease process, highly recommended cessation and avoiding second hand smoke (5) At risk for deep venous thrombosis Current Visit: Yes Status: Acute Base Code: Z91.89 - OTH PERSONAL RISK FACTORS, NOT ELSEWHERE CLASSIFIED Comment: 10/23/18: -lovenox 40mg SC daily for DVT prophylaxis (6) Full code status Current Visit: Yes Status: Acute Base Code: Z78.9 - OTHER SPECIFIED HEALTH STATUS Comment: 10/23/18: -Pt. is a full code - Hospitalization Course Disposition: Home, Self-Care Hospital Course: 63 yo female presents with about 5 days of progressive cough and shortness of breath. She is a smoker. The cough so far has been non productive. She denies and chest pain. No history of diagnosed lung disease. She had a few loose stools today. No vomiting. The patient was 88% on room air on arrival. No known coronary disease. No recent edema of the legs. She reports that she did have some similar cough over the course of the last month but it seemed to have gotten better only to return the last 5 days. She had pneumonia about 10 years ago requiring admission for about a week. PCP is in [place] She did state that she occasionally uses her husbands nebulizer at home if short of breath. PMHx includes: every day smoker, DM, arthritis, anxiety, depression. In the ED, oxygen 88% on arrival. HR 94. BP stable and pt afebrile. Oxygen improved to low 90s on 2L O2. EKG SNR, normal intervals, no ST-T changes, no changes from previous of 05/02/18. CBC demonstrated mild anemia. Pt. was admitted for COPD exacerbation and URI. 10/22/18: Pt. is resting in bed, she reports improvement in shortness of breath. She is currently on 2L oxygen NC. Will change to PO steroids and abx today. today. Continue duo nebs q4h. 10/23/18: Responded well to steroid, antibiotics and respiratory therapy. No complications during stay. Was able to wean off O2 to keep SPO2>88%. Remained afebrile during stay and reports feels "much better" compared to admission status. Plan to quit smoking and is motivated at time of discharge. Follow up PCP 1 week for continued maintenance of COPD. Procedures: Imaging and X-Rays 10/21/18 23:54 CHEST 2 VIEWS [RAD] Stat Cardiology Procedures 10/21/18 23:54 Milling Operator .Continuous 10/21/18 23:58 EKG NOW 10/22/18 01:14 Milling Operator .Continuous Abnormal Labs: Abnormal Lab Results 10/22/18 10/22/18 10/22/18 Range/Units 00:05 00:05 08:22 WBC (4.2-12.2) K/uL RBC 3.67 L (3.80-5.40) M/uL Hgb (11.6-16.0) gm/dl Hct (35.0-47.0) % MCV 101.9 H (81-97) fl MCHC 31.0 L (32-36) g/dl Neutrophils % (47-80) % Monocytes % 9.2 H (0-9) % Lymphocytes (16-45) % Potassium 5.5 H (3.4-4.5) mmol/L POC Glucose 298 H (70-110) mg/dL Random Glucose 336 H (74-109) mg/dL Total Bilirubin (0.2-1.0) mg/dL AST (10.0-35.0) U/L Total Protein (6.6-8.7) g/dL Albumin (4.0-5.0) g/dL 10/22/18 10/22/18 10/23/18 Range/Units 15:35 17:22 00:25 WBC (4.2-12.2) K/uL RBC (3.80-5.40) M/uL Hgb (11.6-16.0) gm/dl Hct (35.0-47.0) % MCV (81-97) fl MCHC (32-36) g/dl Neutrophils % (47-80) % Monocytes % (0-9) % Lymphocytes (16-45) % Potassium (3.4-4.5) mmol/L POC Glucose 312 H 227 H 276 H (70-110) mg/dL Random Glucose (74-109) mg/dL Total Bilirubin (0.2-1.0) mg/dL AST (10.0-35.0) U/L Total Protein (6.6-8.7) g/dL Albumin (4.0-5.0) g/dL 10/23/18 10/23/18 10/23/18 Range/Units 06:57 06:57 08:11 WBC 17.9 H (4.2-12.2) K/uL RBC 3.25 L (3.80-5.40) M/uL Hgb 10.4 L (11.6-16.0) gm/dl Hct 33.3 L (35.0-47.0) % MCV 102.5 H (81-97) fl MCHC 31.2 L (32-36) g/dl Neutrophils % 81.0 H (47-80) % Monocytes % (0-9) % Lymphocytes 13.0 L (16-45) % Potassium 4.9 H (3.4-4.5) mmol/L POC Glucose 244 H (70-110) mg/dL Random Glucose 260 H (74-109) mg/dL Total Bilirubin < 0.20 L (0.2-1.0) mg/dL AST 9 L (10.0-35.0) U/L Total Protein 6.0 L (6.6-8.7) g/dL Albumin 3.7 L (4.0-5.0) g/dL Condition at Discharge: (2) Stable Discharge Medications - Discharge Medications Prescriptions: Albuterol Sulfate [Albuterol Sulfate Hfa] 1 - 2 inh IH RESP.QID PRN 30 Days hfa.aer.ad NS PRN Reason: Difficulty In Breathing Cefdinir 300 mg PO BID 7 Days #14 capsule Nicotine [Nicotine 21Mg] 1 patch TD DAILY 7 Days #7 patch Prednisone [Prednisone 20Mg] 40 mg PO DAILYWM 5 Days #10 tab Benzonatate [Tessalon Perles] 100 mg PO TID PRN #30 capsule PRN Reason: Cough Azithromycin [Zithromax] 250 mg PO DAILY #4 tab Home Medications: Ambulatory Orders Aspirin [Adult Low Dose Aspirin EC] 81 mg PO QHS 03/02/16 [Last Taken 1 Day Ago ~03/01/16] Diltiazem HCl [Cardizem Cd] 180 mg PO QHS 03/02/16 [Last Taken 1 Day Ago ~03/01/16] Metformin HCl [Glucophage] 1,000 mg PO BID 03/02/16 [Last Taken 1 Day Ago ~03/01/16] Simvastatin [Zocor] 40 mg PO QHS 03/02/16 [Last Taken 1 Day Ago ~03/01/16] Trazodone HCl 200 mg PO QHS 03/02/16 [Last Taken 1 Day Ago ~03/01/16] Acetaminophen [Tylenol Extra Strength] 1,000 mg PO TID 10/22/18 [Last Taken Un known] Cetirizine HCl 10 mg PO DAILY 10/22/18 [Last Taken Unknown] Clonazepam 1 mg PO TID 10/22/18 [Last Taken Unknown] Cyanocobalamin (Vitamin B-12) [Vitamin B12] 1,000 mcg PO DAILY 10/22/18 [Last Ta prince Unknown] Gabapentin [Neurontin] 600 mg PO QID 10/22/18 [Last Taken Unknown] Lisinopril 2.5 mg PO DAILY 10/22/18 [Last Taken Unknown] Melatonin 5 mg PO QHS 10/22/18 [Last Taken Unknown] Sennosides/Docusate Sodium [Senna Plus] 1 each PO QHS 10/22/18 [Last Taken Unknown] Venlafaxine HCl [Effexor Xr] 37.5 mg PO DAILY 10/22/18 [Last Taken Unknown] Venlafaxine HCl [Effexor Xr] 150 mg PO DAILY 10/22/18 [Last Taken Unknown] Albuterol Sulfate [Albuterol Sulfate Hfa] 1 - 2 inh IH RESP.QID PRN 30 Days hfa.aer.ad NS 10/23/18 [Last Taken Unknown] Azithromycin [Zithromax] 250 mg PO DAILY #4 tab 10/23/18 [Last Taken Unknown] Benzonatate [Tessalon Perles] 100 mg PO TID PRN #30 capsule 10/23/18 [Last Taken Unknown] Cefdinir 300 mg PO BID 7 Days #14 capsule 10/23/18 [Last Taken Unknown] Nicotine [Nicotine 21Mg] 1 patch TD DAILY 7 Days #7 patch 10/23/18 [Last Taken Unknown] Prednisone [Prednisone 20Mg] 40 mg PO DAILYWM 5 Days #10 tab 10/23/18 [Last Taken Unknown] Discharge Plan - Discharge Instructions Activity at Discharge: Increase Activity as Tolerated Diet at Discharge: Diabetic Diet Additional Instructions: Advise to stop smoking and not allow anyone to smoke around you Nicotine patch daily Use Albuterol inhaler as needed for shortness of breath/wheezing/cough Follow up with PCP in 1 week Quality Measures - Quality Measures Quality Measures: Documentation of Current Medications in Medical Record, Scre ening for High Blood Pressure and F/U Documented - Current Medications Quality Measure: Measure #130: Documentation of Current Medications Documentation of Current Medications: <Current Medications Documented/Reviewed> [G8427] - Blood Pressure Screening Quality Measure: Screening for High Blood Pressure and Follow-Up Documented Does Patient Have Any of the Following: Active Dx of HTN Blood Pressure Classification: Normal BP Reading Systolic Measurement: 109 Diastolic Measurement: 67 Screening for High Blood Pressure: Patient Exclusion, Hx of HTN [G9744] - Elder Abuse Suspicion Index EASI Reference Information: Dinorha SAMSON, Hemant C, Junito D, Pio Torres.Development and validation of a tool to assist physicians identification of elder abuse: The Elder Abuse Suspicion Index (EASI ). Journal of Elder Abuse and Neglect, 2008; 20 (3): 276-300.
== END 2018-10-23 12:10 | disposition home or self-care (01) ==
LOC: ER 23:48 → MEDSURG 10-22 01:07 → INTOOBSV 10-22 01:07
PROVIDERS: ADMIT Internal Medicine; ATTEND Internal Medicine
DX: J44.9 Chronic obstructive pulmonary disease, unspecified (principal); R09.02 Hypoxemia; J40 Bronchitis, not specified as acute or chronic; E11.9 Type 2 diabetes mellitus without complications; M19.90 Unspecified osteoarthritis, unspecified site; F17.210 Nicotine dependence, cigarettes, uncomplicated
CPT/HCPCS: 36416; 71046; 80048; 80053; 82948; 83880; 84484; 85025; 85027; 93005; 93010; 94640; 94761; 96372; 96374; 99217; 99220; 99285; J1650; J2930; J7512

== ENCOUNTER 2019-03-25 18:00 | Emergency (ER) | payer MEDICARE, MEDICAID ==
[2019-03-25] MEDS ORDERED: IBUPROFEN 400 MG TABLET PO ONE (18:42)
--- NOTE | 2019-03-25 18:51 | Emergency Department Record ---
History of Present Illness - General Chief Complaint: Fall Injury Stated Complaint: FALL Time Seen by Provider: 03/25/19 18:32 Source: Patient, Family Mode of Arrival: Wheelchair Limitations: No limitations - History of Present Illness Initial Comments: The patient is here due to a slip and fall about 3 hours ago at home. She fell onto her L side from standing. The patient was able to walk after the fall using her walker and cane. She denies hitting her head or any LOC or head injury. Presently she is complaining of pain all over but mainly to her knees, neck, L wrist and pelvis. The patient denies any THOMAS, nausea, vomiting, confusion or blurred vision. 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 Fall Witnessed: Yes, by bystander Place Fall Occurred: Other Loss of Consciousness: None Prolonged Down Time?: No Symptoms Prior to Fall: None Location: Head, Neck Severity scale (1-10): 9 Quality: Aching Associated Symptoms: Denies - Stefany Coma Scale Eye Response: (4) Open spontaneously Motor Response: (6) Obeys commands Verbal Response: (5) Oriented [place] Total: 15 - Related Data Previous Rx's Medication Instructions Recorded Albuterol Sulfate [Albuterol 1 - 2 inh IH RESP.QID PRN 30 Days 10/23/18 Sulfate Hfa] hfa.aer.ad NS Nicotine [Nicotine 21Mg] 1 patch TD DAILY 7 Days #7 patch 10/23/18 Allergies Allergy/AdvReac Type Severity Reaction Status Date / Time NSAIDS (Non-Steroidal Allergy Unknown HYPERSENSIT Verified 03/25/19 18:19 Anti-Inflamma IVITY [NSAIDS (NON-STEROIDAL ANTI-INFLAMMA] morphine Allergy HIVES Verified 03/25/19 18:19 Travel Screening - Travel/Exposure Within Last 30 Days Have you traveled within the last 30 days?: No Review of Systems Constitutional: Denies: Chills, Fever Eyes: Denies: Eye discharge ENT: Denies: Congestion Respiratory: Denies: Cough, Dyspnea Past Medical History - SOCIAL HISTORY Smoking Status: Current every day smoker Alcohol Use: None Drug Use: None - RESPIRATORY Hx Respiratory Disorders: No - CARDIOVASCULAR Hx Cardio Disorders: Yes Hx Irregular Heartbeat: Yes (svt) Comment:: cholesterol - NEURO Hx Neuro Disorders: No - GI Hx GI Disorders: No - Hx Genitourinary Disorders: No - ENDOCRINE Hx Endocrine Disorders: Yes Hx Diabetes: Yes Hx Thyroid Disease: No - MUSCULOSKELETAL Hx Musculoskeletal Disorders: Yes Hx Arthritis: Yes - PSYCH Hx Psych Problems: Yes Hx Anxiety: Yes Hx Depression: Yes - HEMATOLOGY/ONCOLOGY Hx Hematology/Oncology Disorders: No Hx Cancer: No Family Medical History Any Significant Family History?: Yes Hx Heart Disease: Father, Mother Physical Exam - General General Appearance: Alert, Oriented x3, Cooperative, No acute distress - Head Head exam: Atraumatic, Normocephalic, Normal inspection - Eye Eye exam: Normal appearance, PERRL, EOMI - ENT ENT exam: TM's normal bilaterally - Neck Neck exam: Normal inspection, Full ROM. negative: Lymphadenopathy, Meningismus, Tenderness - Respiratory Respiratory exam: Normal lung sounds bilaterally. negative: Respiratory distress - Cardiovascular Cardiovascular Exam: Regular rate, Normal rhythm, Normal heart sounds - GI/Abdominal GI/Abdominal exam: Soft, Normal bowel sounds. negative: Tenderness - Extremities Extremities exam: Normal inspection (There is no knee bruising or swelling.), Full ROM (The patient has full ROM including the wrists and shoulders. There is no pain with ROM of the shoulders. The patient does have slight decreased full ROM of the hips bilaterally but that is normal for her per the patient. ), Normal capillary refill, Tenderness (There is mild tenderness to the bilateral knees, and L wrist. ), Other (The lower legs are NVI.). negative: Joint swelling, Pedal edema - Back Back exam: Reports: Normal inspection, Other (There is mild sacral and buttock tenderness.). Denies: Vertebral tenderness - Neurological Neurological exam: Alert, Normal gait (The patient is able to walk normally under her own power.), Oriented X3. negative: Abnormal gait, Altered, Motor sensory deficit - Psychiatric Psychiatric exam: negative: Anxious - Skin Skin exam: negative: Rash Course Vital Signs 03/25/19 18:13 Temperature 98.4 F Pulse Rate [ 86 Pulse Ox Probe] Respiratory 18 Rate Blood Pressure 139/81 [Left Arm] Pulse Ox 95 - Reevaluation(s) Reevaluation #1: The patient is doing better at this time. She denies any significant head pain and only is complaining of tailbone pain and mild hip pain. She is able to get up and walk normally with no new limping or antalgic gait. I did discuss the neg xrays and the need for F/U. 03/25/19 19:49 Medical Decision Making - Data Complexity MDM Data: X-Ray Ordered and/or Reviewed - Radiology Data Radiology results: Report reviewed (All xrays neg for any fx or dislocation.) Disposition Disposition: Discharge Clinical Impression: Knee contusion Qualifiers: Encounter type: initial encounter Laterality: unspecified laterality Qualified Code(s): S80.00XA - Contusion of unspecified knee, initial encounter Disposition: Home, Self-Care Condition: (2) Stable Instructions: Fall Prevention for Older Adults (ED), Contusion in Adults (ED) Additional Instructions: Please rest and use the Ward for pain and then switch to tylenol. Please see your family doctor later this week for recheck. Return to the ER for any worsening pain, headache, vomiting, confusion or any new issues. Forms: Patient Portal Access Time of Disposition: 19:48 Quality - Quality Measures Quality Measures: N/A - Blood Pressure Screening View Details: Yes Does Patient Have Any of the Following: Active Dx of HTN Blood Pressure Classification: Pre-Hypertensive BP Reading Systolic Measurement: 139 Diastolic Measurement: 81 Screening for High Blood Pressure: Patient Exclusion, Hx of HTN [G9744]
--- NOTE | 2019-03-25 19:23 | RADIOLOGY REPORT ---
EXAMINATION: Left Wrist Complete, Minimum Three Views EXAM DATE: 03/25/2019 7:02 PM TECHNIQUE: PA, lateral, and oblique INDICATION: fall, left hand pain COMPARISON: None ENCOUNTER: Initial FINDINGS: No acute fracture or dislocation. Normal carpal alignment. Generalized osteopenia. Mild osteophytosis at the 1st carpometacarpal joint. IMPRESSION: No acute fracture. Dictated by: Jamal Fonseca MD on 03/25/2019 7:18 PM. .
[2019-03-25] MEDS ORDERED: HYDROCODONE/APAP 5/325MG TABLET PO ONE ×2 (19:24→19:46)
--- NOTE | 2019-03-25 19:24 | RADIOLOGY REPORT ---
EXAMINATION: Pelvis, One or Two Views EXAM DATE: 03/25/2019 7:09 PM TECHNIQUE: AP INDICATION: fall, hip pain COMPARISON: None ENCOUNTER: Initial FINDINGS: No evidence of acute fracture or hip dislocation. No sacroiliac joint or pubic symphysis widening. Th ere is severe bilateral hip joint space loss. IMPRESSION: 1. No evidence of acute fracture. If the patient's hip pain is out of proportion to these findings, further characterization with CT is recommended. 2. Severe hip joint space loss. Dictated by: Jamal Fonseca MD on 03/25/2019 7:21 PM. .
--- NOTE | 2019-03-25 19:30 | RADIOLOGY REPORT ---
EXAMINATION: Cervical Spine Complete, 4 or 5 Views EXAM DATE: 03/25/2019 7:09 PM TECHNIQUE: AP, lateral, odontoid, bilateral oblique views. INDICATION: fall COMPARISON: None ENCOUNTER: Initial FINDINGS: There is moderate lower cervical degenerative disc space narrowing. There is no evidence of fracture or dislocation. IMPRESSION: Cervical DJD Dictated by: Tolu Clark MD on 03/25/2019 7:21 PM. .
--- NOTE | 2019-03-25 19:35 | RADIOLOGY REPORT ---
EXAMINATION: Left Knee, Three Views EXAM DATE: 03/25/2019 7:19 PM TECHNIQUE: Frontal, lateral, and oblique INDICATION: fall COMPARISON: None ENCOUNTER: Initial FINDINGS: Left knee arthroplasty is noted. No fracture or dislocation is seen. There is no joint effusion. IMPRESSION: Negative postoperative knee Dictated by: Tolu Calrk MD on 03/25/2019 7:33 PM. .
--- NOTE | 2019-03-25 19:36 | RADIOLOGY REPORT ---
EXAMINATION: Right Knee, Three Views EXAM DATE: 03/25/2019 7:19 PM TECHNIQUE: Frontal, lateral, and oblique INDICATION: fall COMPARISON: None ENCOUNTER: Initial FINDINGS: Knee arthroplasty is present. Alignment is preserved. No fracture or complicating process is noted. T here is swelling of the patellar tendon without displacement of the patella. There is a tiny joint ef fusion. IMPRESSION: Mild patellar tendon swelling. Clinical correlation for focal injury is suggested. Postoperative righ t knee without dislocation Dictated by: Tolu Clark MD on 03/25/2019 7:34 PM. .
== END 2019-03-25 19:55 | disposition home or self-care (01) ==
LOC: ER 18:00
DX: S80.02XA Contusion of left knee, initial encounter (principal); S80.01XA Contusion of right knee, initial encounter; F17.210 Nicotine dependence, cigarettes, uncomplicated; M25.522 Pain in left elbow; M25.532 Pain in left wrist; M54.2 Cervicalgia; M25.512 Pain in left shoulder; W00.0XXA Fall on same level due to ice and snow, initial encounter; Y92.009 Unspecified place in unspecified non-institutional (private) residence as the place of occurrence of the external cause
CPT/HCPCS: 72050; 72170; 99284

== ENCOUNTER 2019-05-27 22:05 | Emergency (ER) | payer MEDICARE, MEDICAID ==
[2019-05-27] MEDS ORDERED: PREDNISONE 20 MG TAB PO ONE (22:22)
--- NOTE | 2019-05-27 22:25 | Emergency Department Record ---
History of Present Illness - General Chief Complaint: Cough Stated Complaint: BRONCHITIS Time Seen by Provider: 05/27/19 22:10 Source: Patient Mode of Arrival: Ambulatory Limitations: No limitations - History of Present Illness Initial Comments: 63 yo female presents to ED for evaluation of non-productive cough symptoms for the past several days, denies fevers, chills, nausea or vomiting. Patient denies history of COPD/asthma, does report that she was started on Zithromax and Tessalon Perles for her symptoms earlier today. Patient presents to ED for evaluation following a "4 minute coughing fit" in which she was unable to catch her breath. Patient reports that her "cough symptoms have worsened". MD Complaint: Cough Onset/Timin -: Days(s) Severity: Moderate Severity scale (1-10): 8 Consistency: Getting worse Improves With: Nothing Worsens With: Deep breaths Treatments Prior to Arrival: Antibiotics - Related Data Home Medications Medication Instructions Recorded Confirmed Last Taken Insulin Glargine,Hum.rec.anlog 30 unit SQ DAILY 05/27/19 05/27/19 05/27/19 [Lantus] Previous Rx's Medication Instructions Recorded Albuterol Sulfate [Albuterol 1 - 2 inh IH RESP.QID PRN 30 Days 10/23/18 Sulfate Hfa] hfa.aer.[email or web address] NS Prednisone [Prednisone 20Mg] 20 mg PO BID #12 tab 05/27/19 Allergies Allergy/AdvReac Type Severity Reaction Status Date / Time NSAIDS (Non-Steroidal Allergy Unknown HYPERSENSIT Verified 05/27/19 22:15 Anti-Inflamma IVITY [NSAIDS (NON-STEROIDAL ANTI-INFLAMMA] morphine Allergy HIVES Verified 05/27/19 22:15 Travel Screening - Travel/Exposure Within Last 30 Days Have you traveled within the last 30 days?: No - Travel/Exposure Within Last Year Have you traveled outside the [place] in the last year?: No - Additonal Travel Details Have you been exposed to anyone with a communicable illness?: No - Travel Symptoms Symptom Screening: None Review of Systems Constitutional: Denies: Chills, Fever, Malaise, Night sweats Eyes: Denies: Eye discharge, Eye pain ENT: Reports: Congestion. Denies: Ear pain, Epistaxis Respiratory: Reports: Cough. Denies: Dyspnea, Wheezes Cardiovascular: Denies: Chest pain, Dyspnea on exertion Endocrine: Denies: Fatigue, Heat or cold intolerance Gastrointestinal: Denies: Abdominal pain, Nausea, Vomiting Genitourinary: Denies: Incontinence, Retention Musculoskeletal: Denies: Arthralgia, Back pain Skin: Denies: Bruising, Change in color Neurological: Denies: Abnormal gait, Confusion, Headache, Seizure Psychiatric: Denies: Anxiety Hematological/Lymphatic: Denies: Anemia, Blood Clots Past Medical History - SOCIAL HISTORY Smoking Status: Former smoker Alcohol Use: Rare Drug Use: None - RESPIRATORY Hx Respiratory Disorders: Yes Hx Asthma: Yes (allergy induced) - CARDIOVASCULAR Hx Cardio Disorders: Yes Hx Irregular Heartbeat: Yes (svt) Comment:: cholesterol - NEURO Hx Neuro Disorders: No - GI Hx GI Disorders: No - Hx Genitourinary Disorders: No - ENDOCRINE Hx Endocrine Disorders: Yes Hx Diabetes: Yes Hx Thyroid Disease: No - MUSCULOSKELETAL Hx Musculoskeletal Disorders: Yes Hx Arthritis: Yes - PSYCH Hx Psych Problems: Yes Hx Anxiety: Yes Hx Depression: Yes - HEMATOLOGY/ONCOLOGY Hx Hematology/Oncology Disorders: No Hx Cancer: No Family Medical History Any Significant Family History?: Yes Hx Heart Disease: Father, Mother Physical Exam - General General Appearance: Alert, Oriented x3, Cooperative, No acute distress, Other (No coughing on examination) Limitations: No limitations - Head Head exam: Atraumatic, Normocephalic, Normal inspection Head exam detail: negative: Abrasion, Contusion, Ross's sign, General tenderness, Hematoma, Laceration - Eye Eye exam: Normal appearance. negative: Conjunctival injection, Periorbital s welling, Periorbital tenderness, Scleral icterus - ENT Ear exam: negative: Auricular hematoma, Auricular trauma Nasal Exam: negative: Active bleeding, Discharge, Dried blood, Foreign body Mouth exam: negative: Drooling, Laceration, Muffled voice, Tongue elevation - Neck Neck exam: Normal inspection. negative: Meningismus, Tenderness - Respiratory Respiratory exam: Normal lung sounds bilaterally. negative: Rales, Respiratory distress, Rhonchi, Stridor - Cardiovascular Cardiovascular Exam: Regular rate, Normal rhythm, Normal heart sounds - GI/Abdominal GI/Abdominal exam: Soft. negative: Rebound, Rigid, Tenderness - Rectal Rectal exam: Deferred - exam: Deferred - Extremities Extremities exam: Normal inspection. negative: Pedal edema, Tenderness - Back Back exam: Denies: CVA tenderness (R), CVA tenderness (L) - Neurological Neurological exam: Alert, Normal gait, Oriented X3 - Psychiatric Psychiatric exam: Normal affect, Normal mood - Skin Skin exam: Normal color. negative: Abrasion Type of lesion: negative: abrasion Course Vital Signs 05/27/19 22:15 Temperature 98.6 F Pulse Rate [ 97 H Left] Respiratory 18 Rate Blood Pressure 151/78 [Left Arm] Pulse Ox 95 - Reevaluation(s) Reevaluation #1: 05/27/19 22:29 Patient's breath sounds are normal on examination No clinical evidence for pneumonia Patient is taking Zithromax and Tessalon as previously prescribed as well. Will add Prednisone for possible lung inflammation reduction Patient was counseled re: elevation of her glucose with Prednisone Patient is in agreement with the plan of care as discussed. Patient appears stable for discharge at this time. Disposition Disposition: Discharge Clinical Impression: Acute bronchitis Qualifiers: Bronchitis organism: unspecified organism Qualified Code(s): J20.9 - Acute bronchitis, unspecified Disposition: Home, Self-Care Condition: (2) Stable Instructions: Acute Bronchitis (ED) Additional Instructions: Return to ED if your symptoms worsen or if you have any concerns. Prednisone as directed. Continue [id number] and Tessalon as previously prescribed. Follow-up with your family doctor in 3-5 days as directed. Prescriptions: Prednisone [Prednisone 20Mg] 20 mg PO BID #12 tab Forms: Patient Portal Access Time of Disposition: 22:25 Quality - Quality Measures Quality Measures: N/A, Adult Bronchitis (18-64yr) - Adult Bronchitis Quality Measure: Measure #116: Avoidance of ABX w/Adult Bronchitis ICD10 Codes Entered: Yes Is patient being admitted: No Avoidance of ABX w/Bronchitis: <ABX neither prescribed nor dispensed> [4124F] - Blood Pressure Screening Does Patient Have Any of the Following: No Blood Pressure Classification: Hypertensive Reading Systolic Measurement: 151 Diastolic Measurement: 78 Screening for High Blood Pressure: < First Hypertensive BP, F/U Documented > [G8950] First Hypertensive Follow-up Interventions: Referral to alternative/primary care provider.
== END 2019-05-27 22:40 | disposition home or self-care (01) ==
LOC: ER 22:05
DX: J20.9 Acute bronchitis, unspecified (principal); Z87.891 Personal history of nicotine dependence; E11.9 Type 2 diabetes mellitus without complications
CPT/HCPCS: 99283; J7512